=== PATIENT | female | born 1980 | race Caucasian/White ===

== ENCOUNTER 2023-06-25 08:00 | Day surgery (SDC) | payer OTHER ==
[2023-06-15 13:18] VITALS: BP 130/84
[~2023-06-25] VITALS: Ht 157.5 cm; Wt 55.5 kg
[~2023-06-25 08:00] MED LIST: IBUPROFEN200 M1 PO; KEFLEX500 MG PO; MEDROL4 M1 PO
[2023-06-25 08:11] VITALS: BP 131/82
--- NOTE | 2023-06-25 12:42 | NUR ---
06/25/23 1242 Michelle Allen 1234 PT ARRIVED TO PACU ON 6L VIA MASK, PT REACTIVE TO TACTILE STIMULI RESP EVEN AND UNLABORED. 1241 PT DENIES PAIN AND NAUSEA. O2 REMOVED. ICE PLACED ON SURGICAL SITE. PT RESTING WITH EYES CLOSED.
[2023-06-25 13:08] VITALS: BP 118/59
--- NOTE | 2023-06-25 13:10 | NUR ---
LE 1300 PATIENT BACK TO DAY SURGERY ROOM 5. VITAL SIGNS COMPLETE. PATIENT DROWSY BUT ORIENTED. BREATHING EQUAL AND UNLABORED. OXYGEN SATURATIONS ABOVE 90% ON ROOM AIR. PATIENT DENIES BEING PAINFUL OR BEING NAUSEATED. PATIENT DRINKING WATER. HEAD OF BED ELEVATED. PATIENT SURGICAL DRESSING CLEAN, DRY AND INTACT. SCD'S ON. IVF INFUSING. CALL LIGHT WITHIN REACH NO FUTHER NEEDS. NO QUESTIONS AT THIS TIME.
[2023-06-25 14:00] VITALS: BP 116/59
--- NOTE | 2023-06-25 15:46 | OR ---
[facility] [address] [place], [place] [address] Signed DATE OF OPERATION: 06/25/2023 SURGEON: Pernell Gray MD PREOPERATIVE DIAGNOSIS: Right breast cancer at 10 o'clock position (1.3 x 1.0 x 1.0 cm) POSTOPERATIVE DIAGNOSIS: Right breast cancer at 10 o'clock position (1.3 x 1.0 x 1.0 cm) PROCEDURES: 1. Injection of methylene blue. 2. Right sentinel lymph node biopsies x2. 3. Right breast needle localization lumpectomy. ESTIMATED BLOOD LOSS: Minimal. INDICATIONS: Omkar is a 43-year-old young lady, asked to see me for a new diagnosis of right breast cancer. She had a mammogram in 2019 which was unremarkable. She went back in April of 2023. There was a subtle area in the right breast at the 10 o'clock position about 5 cm back from the nipple areolar complex. She went back for compression views that same month and the subtle area persisted. An ultrasound on that same day showed the spiculated mass measuring 1.3 x 1.0 x 1.0 cm. There were no obvious lymph nodes in the axilla. She went back on May 28, 2023 and had ultrasound-guided core needle biopsies x4. A clip had been left in place. She has ductal carcinoma with some lobular components. She is ER/HI positive. HER-2/joanne is equivocal and therefore FISH studies have been pending. In the office with our medical biller coder present, we can feel a small indurated area consistent with her mammograms. No obvious lymphadenopathy. Her biopsy incision started at the 9 o'clock position and traveled up to the 10 o'clock position. I gave her a brochure on breast and breast biopsies along with breast cancer. We went through it page by page. We discussed the idea of a needle localization lumpectomy and a separate incision in the axilla for the sentinel lymph node biopsies. She understands she will need the wire placed in our Radiology Department. She also understands she will have injection of sulfur technetium colloid in our Radiology Department. After that, she would come over to operating room for the surgery. We described two separate incisions for her. She understands there is risk to the surgery including, but not limited to bleeding, infection, scarring, change in contour of the skin as well as the possible need for additional surgeries and treatments including Electronically Signed By: PERNELL GRAY MD 06/25/23 1546 PATIENT NAME: OMKAR NI OPERATIVE REPORT DATE OF : 76 REPORT #: [id number] PHYSICIAN: PERNELL GRAY MD PCP: ISAIAH ROBERTSON PA-C REPORT IS CONFIDENTIAL AND NOT TO BE RELEASED WITHOUT AUTHORIZATION [address] [address] Signed chemotherapy and radiation therapy. She understands this will be a day surgery and she will go home later. She had expressed understanding and wished to proceed. DESCRIPTION OF PROCEDURE: I met with Omkar in our preop area along with our nurse. We were able to easily identify the right breast and all agree and marked that appropriately. After this, she was taken to the operating room and placed in the supine position under general LMA anesthesia. She had been given preoperative antibiotics along with subcutaneous heparin. SCDs were utilized. She had been prepped and draped in the usual sterile fashion. We utilized a standard axillary incision along the inferior edge of the hairline and into the axilla without difficulty. We reviewed her radiographic studies. Her sentinel lymph nodes appeared to be high in the axilla rather than down lower where they are traditionally. With the help of the Liliana counter, we carefully and slowly worked our way to the top of the axilla with blunt dissection. We finally found two sentinel lymph nodes and we sent them off separately. After that, there were no other lymph nodes noted with our Liliana counter. We had injected methylene blue around her nipple areolar complex, but we did not specifically see any methylene blue in the lymph nodes. After this, local anesthetic was injected into the axilla. The wound was irrigated and suctioned out until clear. We closed the skin and dermis with interrupted 3-0 subcuticular and Monocryl sutures. The skin edges were reapproximated with a running 5-0 fast absorbing plain gut suture. After this, we looked at the wire and it was starting at the 9 o'clock position, but it was heading obliquely and superiorly up towards the 10 o'clock position about 5 cm above the nipple areolar complex. Omkar has relatively small breasts. We made a curvilinear incision so that if she would need a mastectomy in the future that could be included in the mastectomy incision. We traveled down and around the wire with the help of the cautery and digital palpation, went all the way down to the pectoralis major muscle. We went down around the wire as well as took some additional tissue medially and laterally. After this, the entire specimen was removed en bloc and marked appropriately with silk sutures. The specimen was sent off to our radiologist. The radiologist had called us back to let us know that the wire, the clip and the entire lesion was contained in the specimen. After this, we injected local anesthetic into the wound. The wound was irrigated and suctioned out until clear. We closed the skin and dermis with interrupted 3-0 subcuticular and Monocryl sutures. The skin edges were reapproximated with running 5-0 fast absorbing plain gut suture. Dry gauze and tape was then applied to both incisions. Omkar was awakened from her anesthesia, extubated in the OR, and taken to recovery room in stable condition. Pernell Gray MD Electronically Signed By: PERNELL GRAY MD 06/25/23 1546 PATIENT NAME: OMKAR NI OPERATIVE REPORT DATE OF : 76 REPORT #: [id number] PHYSICIAN: PERNELL GRAY MD PCP: ISAIAH ROBERTSON PA-C REPORT IS CONFIDENTIAL AND NOT TO BE RELEASED WITHOUT AUTHORIZATION [facility] [address] [place] [id number] Signed ALB/MODL /[id number] cc: MD Isaiah Morales PA Copies: PERNELL GRAY MD ~ Electronically Signed By: PERNELL GRAY MD 06/25/23 1546 PATIENT NAME: OMKAR NI OPERATIVE REPORT DATE OF : [birth year] REPORT #: [id number] PHYSICIAN: PERNELL GRAY MD PCP: ISAIAH ROBERTSON PA-C REPORT IS CONFIDENTIAL AND NOT TO BE RELEASED WITHOUT AUTHORIZATION
--- NOTE | 2023-06-30 15:53 | PATH ---
[facility] [address] [place], [place] [address] Signed SPECIMEN(S): A SENTINEL LYMPH NODE #1 SPECIMEN(S): B SENTINEL LYMPH NODE #2 SPECIMEN(S): C RIGHT BREAST LUMPECTOMY SPECIMEN SOURCE: A. SENTINEL LYMPH NODE #1 B. SENTINEL LYMPH NODE #2 C. RIGHT BREAST LUMPECTOMY CLINICAL HISTORY: Ductal carcinoma with lobular components. Specimen Time to Fixation- 06/25/2023 FINAL PATHOLOGIC DIAGNOSIS: A. Redfield lymph node #1, dissection: - One lymph node with micrometastasis (1/1), measuring up to 0.1 cm in greatest dimension. - Negative for extranodal extension. - A properly controlled immunohistochemical stain for AE1/AE3 performed on block A1 was positive for expression in tumor cells. B. Redfield lymph node #2, dissection: - One lymph node with isolated tumor cells (1/1). - Negative for extranodal extension. - A properly controlled immunohistochemical stain for AE1/AE3 performed on block B1 was positive for expression in tumor cells. C. Right breast, lumpectomy: - Multifocal invasive carcinoma with mixed ductal and lobular features; see synoptic report. INVASIVE CARCINOMA OF THE BREAST: Resection Applies To: A, B, C SPECIMEN Procedure: Excision (less than total mastectomy) Specimen Laterality: Right TUMOR Tumor Site: Not specified Histologic Type: Invasive carcinoma with mixed ductal and lobular features Glandular (Acinar) / Tubular Differentiation: Score 3 Nuclear Pleomorphism: Score 2 Mitotic Rate: Score 1 Overall Grade: Grade 2 (scores of 6 or 7) PATIENT NAME: OMKAR NI PATHOLOGY DATE OF : 76 REPORT #: [id number] PHYSICIAN: AFUA DAVILA PCP: ISAIAH ROBERTSON PA-C REPORT IS CONFIDENTIAL AND NOT TO BE RELEASED WITHOUT AUTHORIZATION [facility] [address] [place], [place] [address] Signed Tumor Size: Greatest dimension of largest invasive focus (Millimeters) - 13 mm Tumor Focality: Multiple foci of invasive carcinoma Number of Foci: Cannot be determined Ductal Carcinoma In Situ (DCIS): Present Size (Extent) of DCIS: Estimated size (extent) of DCIS is at least (Millimeters) - 3 mm Number of Blocks with DCIS: 3 Number of Blocks Examined: 21 Architectural Patterns: Cribriform, Solid Nuclear Grade: Grade II (intermediate) Necrosis: Not identified Lymphovascular Invasion: Present Dermal Lymphovascular Invasion: No skin present Treatment Effect in the Breast: No known presurgical therapy MARGINS Margin Status for Invasive Carcinoma: Invasive carcinoma present at margin Margin(s) Involved by Invasive Carcinoma: Anterior - multifocal Distance from Invasive Carcinoma to Anterior Margin: 0 mm Distance from Invasive Carcinoma to Posterior Margin: Greater than - 2 mm Distance from Invasive Carcinoma to Superior Margin: Greater than - 2 mm Distance from Invasive Carcinoma to Inferior Margin: Greater than - 2 mm Distance from Invasive Carcinoma to Medial Margin: Less than - 1 mm Distance from Invasive Carcinoma to Lateral Margin: Less than - 1 mm Margin Status for DCIS: All margins negative for DCIS Distance from DCIS to Closest Margin: 1 mm Closest Margin(s) to DCIS: Anterior Distance from DCIS to Anterior Margin: 1 mm Distance from DCIS to Posterior Margin: Greater than - 2 mm Distance from DCIS to Superior Margin: Greater than - 2 mm Distance from DCIS to Inferior Margin: Greater than - 2 mm Distance from DCIS to Medial Margin: Greater than - 2 mm Distance from DCIS to Lateral Margin: Greater than - 2 mm REGIONAL LYMPH NODES Regional Lymph Node Status: Tumor present in regional lymph node(s) Number of Lymph Nodes with Macrometastases - 0 Number of Lymph Nodes with Micrometastases - 1 Number of Lymph Nodes with Isolated Tumor Cells - 1 Size of Largest Arcelia Metastatic Deposit - 1 mm Extranodal Extension - Not identified Total Number of Lymph Nodes Examined (sentinel and non-sentinel): 2 PATIENT NAME: OMKAR NI PATHOLOGY DATE OF : 76 REPORT #: [id number] PHYSICIAN: AFUA DAVILA PCP: ISAIAH ROBERTSON PA-C REPORT IS CONFIDENTIAL AND NOT TO BE RELEASED WITHOUT AUTHORIZATION [facility] [address] [place], [place] [address] Signed Number of Redfield Nodes Examined: 2 PATHOLOGIC STAGE CLASSIFICATION (pTNM, AJCC 8th Edition) Reporting of pT, pN, and (when applicable) pM categories is based on information available to the pathologist at the time the report is issued. As per the AJCC (Chapter 1, 8th Ed.) it is the managing physician's responsibility to establish the final pathologic stage based upon all pertinent information, including but potentially not limited to this pathology report. TNM Descriptors: m (multiple foci of invasive carcinoma) pT Category: pT1c Regional Lymph Nodes Modifier: (sn): Redfield node(s) evaluated. pN Category: pN1mi ADDITIONAL FINDINGS Additional Findings: Biopsy site changes Breast Biomarker Testing Performed on Previous Biopsy: Estrogen Receptor (ER) Status: Positive (greater than 10% of cells demonstrate nuclear positivity) Percentage of Cells with Nuclear Positivity: 91-100% Progesterone Receptor (PgR) Status: Positive Percentage of Cells with Nuclear Positivity: 91-100% HER2 (by in situ hybridization): Negative (not amplified) Testing Performed on COMMENT: Grossly, no masses were identified in Specimen C, however, microscopically, multiple foci of tumor were seen, measuring up to 13 mm in greatest dimension. As part of [facility] Quality Improvement Program, this case was reviewed by another member of our pathology staff. A diagnostic alert was initiated by Dr. Murillo on 06/30/2023. DDF MICROSCOPIC EXAMINATION: Histologic sections of all submitted blocks are examined by light microscopy. These findings, together with the gross examination, support the pathologic diagnosis. DDF GROSS DESCRIPTION: A. The specimen, labeled and designated "Tony Ranulfo" and designated on the requisition "sentinel lymph node #1," is received in formalin and consists of one pike possible lymph node (1.2 x 0.8 x 0.7 cm). PATIENT NAME: OMKAR NI PATHOLOGY DATE OF : 76 REPORT #: [id number] PHYSICIAN: AFUA DAVILA PCP: ISAIAH ROBERTSON PA-C REPORT IS CONFIDENTIAL AND NOT TO BE RELEASED WITHOUT AUTHORIZATION [address] [address] Signed The specimen is serially sectioned to reveal a pike-pink soft cut surface and is submitted entirely in cassette A1. B. The specimen, labeled and designated "Tony B" and designated on the requisition "sentinel lymph node #2," is received in salineand consists of a piece of pike-pink soft tissue/possible lymph node (1.4 x 0.8 x 0.7 cm). A piece of the specimen is placed in RPMI and held for lymphoma triage (see HC1 resolution). The remainder of the specimen is radially sectioned and submitted entirely in cassette B1. C. The specimen, labeled and designated "Tony C" and designated on the requisition "right breast lumpectomy," is received in formalin and consists of an oriented portion of fibroadipose tissue (27 grams, 6.0 cm superior to inferior, 3.8 cm medial to lateral, 3.0 cm anterior to posterior) with a short stitch marking superior, long stitch marking lateral, and a double stitch marking medial per the requisition. The specimen is inked as follows: Blue= Superior Green = Inferior Yellow = Anterior Black = Posterior Red = Medial Ogle = Lateral The specimen is serially sectioned from superior to inferior into 11 slices to reveal a white-pike fibrous cut surface. A circular clip and the tip of the localization wire is located in slice five. The entire cut surface is white-pike dense and fibrocystic. A discrete lesion cannot be grossly visualized. The specimen is submitted entirely. Cassette Summary: (C1) slice one, superior margin, perpendicularly sectioned (C2-C3) slice two (C4-C5) slice three (C6-C7) slice four (C8-C9) slice five, location of clip (C10-C11) slice six (C12-C13) slice seven (C14-C15) slice eight (C16-C17) slice nine (C18-C19) slice 10 (C20-C21) slice 11, inferior margin, perpendicularly sectioned Cold ischemic time: Cannot be calculated PATIENT NAME: OMKAR NI PATHOLOGY DATE OF : 76 REPORT #: [id number] PHYSICIAN: AFUA DAVILA PCP: ISAIAH ROBERTSON PA-C REPORT IS CONFIDENTIAL AND NOT TO BE RELEASED WITHOUT AUTHORIZATION [facility] [address] [place], [place] [address] Signed The tissue was fixed in formalin for at least 12 and less than 32 hours AC (under the direct supervision of a pathologist) The Gross Description was prepared using a voice recognition system. The report was reviewed for accuracy; however, sound-alike word errors, addition and/or deletions may occur. If there is any question about this report, please contact Client Services. ADDITIONAL NOTES: Immunohistochemical and/or in situ hybridization studies if performed in this case included appropriate positive controls that reacted as expected. This test was developed and its performance characteristics determined by [facility]. It has not been cleared or approved by the U.S. Food and Drug Administration. The FDA has determined that such clearance or approval is not necessary. This test is used for clinical purposes. It should not be regarded as investigational or for research. [facility] is certified under the Clinical Laboratory Improvement Amendments of 1988 (CLIA) as qualified to perform high complexity clinical laboratory testing. PERFORMING LABORATORY: Technical component was performed by [facility], [address] [place] [id number] (CLIA# [id number]). Professional interpretation was performed by [email or web address], [address] [place] [id number] (IA#: [id number]). Diagnostician: Vida Lira MD Pathologist Diagnostician: Fabrizio Murillo DO Pathologist Electronically Signed 06/30/2023 Copies: ~ PATIENT NAME: OMKAR NI PATHOLOGY DATE OF : [birth year] REPORT #: [id number] PHYSICIAN: AFUA DAVILA PCP: ISAIAH ROBERTSON PA-C REPORT IS CONFIDENTIAL AND NOT TO BE RELEASED WITHOUT AUTHORIZATION
== END 2023-06-25 14:15 | disposition home or self-care (01) ==
LOC: DS 08:00 → OPS 08:00 → EDSTATUS 09:00 → OPS 09:00 → US 09:00 → NUC 10:00 → OPS 14:15
PROVIDERS: ATTEND Colon & Rectal Surgery
PROC: 0HBT0ZZ Excision of Right Breast, Open Approach (ICD-10-PCS; principal; 2023-06-25 10:30)
PROC: 07B50ZX Excision of Right Axillary Lymphatic, Open Approach, Diagnostic (ICD-10-PCS; 2023-06-25 10:30)
DX: C50.411 Malignant neoplasm of upper-outer quadrant of right female breast (principal); C77.3 Secondary and unspecified malignant neoplasm of axilla and upper limb lymph nodes
CPT/HCPCS: 00400; 76098; 76942; 77065; 78195; A9541; J0131; J0690; J1100; J1644; J1885; J2250; J2405; J2704; J3490; J7121; Q9968

== ENCOUNTER 2024-06-21 05:45 | Day surgery (SDC) | payer OTHER ==
[2024-06-16 10:22] VITALS: BP 132/86
[~2024-06-21] VITALS: Ht 157.5 cm; Wt 60.0 kg
--- NOTE | ~2024-06-21 | OR ---
[facility] [address] [place] [id number] Draft DATE OF OPERATION: 06/21/2024 SURGEON: Maryjane Spangler DO PREOPERATIVE DIAGNOSES: ER positive breast cancer. POSTOPERATIVE DIAGNOSES: ER positive breast cancer. PROCEDURES PERFORMED: 1. Total laparoscopic hysterectomy. 2. Bilateral salpingo oophorectomy. 3. Cystoscopy. FLIGHT MECHANIC: Aniyah Crowley MD. ANESTHESIA: General. ESTIMATED BLOOD LOSS: 15 mL. SPECIMENS: Uterus with cervix, bilateral tubes and ovaries. DRAINS: Hernadez to gravity. FINDINGS: Normal external genitalia. Normal clitoris urethral meatus, bilateral Kittitas's, Bartholin's glands. Normal vagina and cervix. On laparoscopy, normal uterus, tubes, and ovaries. Small filmy adhesions of the cul-de-sac. Normal bladder with bilateral ureteral jets on cystoscopy. COMPLICATIONS: None. INDICATIONS: PATIENT NAME: OMKAR JIMENEZ OPERATIVE REPORT DATE OF : 76 REPORT #: [id number] PHYSICIAN: MARYJANE SPANGLER (JOSESITO) PCP: ISAIAH ROBERTSON PA-C REPORT IS CONFIDENTIAL AND NOT TO BE RELEASED WITHOUT AUTHORIZATION [facility] [address] [place] [id number] Draft Ms. Jimenez is a very pleasant 44-year-old female, who was diagnosed with ER positive breast cancer and status post treatment. She is on estrogen suppression and after conversation with oncologist requested surgical estrogen suppression. She was consented for total laparoscopic hysterectomy, bilateral salpingectomy, and cystoscopy. Risks, benefits, and alternatives were discussed in detail with the patient. The patient understands and wished to proceed with the procedure. PROCEDURE IN DETAIL: The patient was taken the OR. A time-out was performed to confirm correct patient, correct procedure. General anesthesia was adequately established. The patient was prepped and draped in dorsal lithotomy position with her feet in Yellofin stirrups. ICPs were on and running. The patient received Ancef 2 g preoperatively as well as heparin 5000 units preoperatively. A Hernadez catheter was inserted. A weighted speculum was placed in the vagina and the anterior lip of the cervix was grasped with an Allis clamp. The cervix was gently dilated using Hegar dilators. A Cvgram.meare uterine manipulator was placed and suspected perforation was noted. Surgeon's gloves were changed and attention was turned to the abdomen. The skin just inferior to the umbilicus was infiltrated with 0.25% Marcaine with epinephrine and a 3-4 cm curvilinear incision was made using a surgical scalpel. The fascia was grasped, elevated, and entered sharply. Fascial incision was extended using Metzenbaum scissors and stay sutures of 0 Vicryl placed in the inferior and superior edges of the fascial incision. The peritoneum was entered and a Costa operative port was placed without difficulty. Pneumoperitoneum was established and survey of the abdomen and pelvis were performed. A 5 mm assist port was placed in the left lower quadrant under direct visualization without complication. An 8 mm expanding port was placed in the right lower quadrant under direct visualization without complication. Attention was then turned to bilateral salpingo-oophorectomy. The right ovary was elevated and the infundibulopelvic ligament identified. The ureter was noted to be medial, well away from the IP. The peritoneum just lateral to the IP was nicked and opened. The IP was isolated and fulgurated and divided with excellent hemostasis. An Endoloop stitch was then placed on the cut end of the IP to secure this further. Attention was turned to the left, where the process was repeated without difficulty with identification of the infundibulopelvic ligament. The ureter fulguration division of the IP and ligation with endo-stitch device. The right round ligament was then fulgurated and divided and the leaves of the broad ligament were divided. The anterior from the midportion of the round to the anterior edge of the vaginal cup. The posterior leaf of the broad ligament was divided from the midportion of the round to the uterosacral posteriorly. The uterine vessels were identified, fulgurated and divided on the right without difficulty. The process was repeated on the left without difficulty. Colpotomy was then performed using Sonicision device in the uterus, cervix, tubes and ovaries were removed through the vagina without difficulty and sent to Pathology for further evaluation. Pneumoperitoneum was reestablished by placing a wet lap sponge inside of a glove and placing this inside the vagina. The colpotomy PATIENT NAME: OMKAR JIMENEZ OPERATIVE REPORT DATE OF : 76 REPORT #: [id number] PHYSICIAN: MARYJANE SPANGLER) DO PCP: ISAIAH ROBERTSON PA-C REPORT IS CONFIDENTIAL AND NOT TO BE RELEASED WITHOUT AUTHORIZATION [facility] [address] [place] [id number] Draft was then evaluated and a small amount of oozing was noted and this was made hemostatic with bipolar cautery. Colpotomy was then repaired using V-Loc suture with an Endostitch device with careful attention to incorporate the uterosacral ligaments bilaterally as well as to incorporate the vaginal epithelium with each bite. Excellent hemostasis and apical support were appreciated. The pelvis was irrigated and found to be hemostatic. Small amount of filmy adhesions was noted in the cul-de-sac and these were brought down with bipolar cautery without difficulty. Pneumoperitoneum was reduced. Trocars were removed and infraumbilical fascia was reapproximated using 0 Vicryl in a running nonlocked manner. Skin incisions were repaired using 3-0 Vicryl Rapide in a subcuticular stitch with excellent hemostasis. Attention was then turned to cysto. The Hernadez catheter was removed and the wet lap inside the glove was removed from the vagina. A 7 degree cystoscope was then placed in the urethral meatus and advanced under direct visualization of the bladder. Normal bladder with bilateral ureteral jets was appreciated. The bladder was drained. Hernadez catheter was inserted and the patient was taken to PACU in good and stable condition. Sponge, needle, and instrument counts were correct x2 at the end of the procedure. Dr. Crowley was present and participated in all portions of procedure. DO YOSSI Way/STAR /[id number] Copies: ~ PATIENT NAME: OMKAR JIMENEZY OPERATIVE REPORT DATE OF : 76 REPORT #: [id number] PHYSICIAN: MARYJANE SPANGLER (JOSESITO) PCP: ISAIAH ROBERTSON PA-C REPORT IS CONFIDENTIAL AND NOT TO BE RELEASED WITHOUT AUTHORIZATION
[~2024-06-21 05:45] MED LIST changes: +AROMASIN25 MG PO; +HYDROCODON-ACE1 EAC8 PO; +ICAPS AREDS2 C1 EACH; +LACTATED RINGER'S 1,000 ML IV SCH; +MAG DELAY64 M1 PO; +VITAMIN E OIL-V52 M1 TOP; +ZOLADEX3.6 MG SUB-Q
[2024-06-21 06:01] VITALS: BP 150/85
[2024-06-21] MEDS ORDERED: CALCIUM500 MG PO (06:06)
[2024-06-21] MEDS ORDERED: VITAMIN D210 MCG PO (06:06)
[2024-06-21] MEDS ORDERED: VITAMIN C500 M1 PO (06:07)
[2024-06-21] MEDS ORDERED: HEParin SOD (PORCINE) 5,000 UNIT/0.5 ML SYR SUB-Q SCH (07:00)
[2024-06-21] MEDS ORDERED: CEFAZOLIN SODIUM 2 GM/20 ML SYR IV SCH (07:00)
[2024-06-21] MEDS ORDERED: LIDOCAINE HCL 1% 5 ML SDV INJ ONE (07:00)
[2024-06-21] MEDS ORDERED: IBLOOD GLUCOSE TEST STRIP 1 EA TEST VI PRN ×2 (07:00→07:45)
[2024-06-21] MEDS ORDERED: KETAMINE in NS 50 MG/5 ML SYR ONE (07:09)
[2024-06-21] MEDS ORDERED: fentaNYL citrate 100 MCG/2 ML VIAL ONE (07:09)
[2024-06-21] MEDS ORDERED: HYDROmorphone HCL 2 MG/ML VIAL ONE (07:09)
[2024-06-21] MEDS ORDERED: MAGNESIUM SULFATE 1 GM/2 ML VIAL ONE (07:10)
[2024-06-21] MEDS ORDERED: LIDOCAINE HCL 2% 5 ML SDV ONE (07:10)
[2024-06-21] MEDS ORDERED: dexmedeTOMIDine HCl 200 MCG/2 ML VIAL ONE (07:10)
[2024-06-21] MEDS ORDERED: ondansetron HCL 4 MG/2 ML VIAL ONE (07:10)
[2024-06-21] MEDS ORDERED: DEXAMETHASONE SOD PHOS 4 MG/ML VIAL ONE (07:10)
[2024-06-21] MEDS ORDERED: ACETAMINOPHEN 1,000 MG/100 ML VIAL ONE (07:10)
[2024-06-21] MEDS ORDERED: propofoL 200 MG/20 ML VIAL ONE (07:10)
[2024-06-21] MEDS ORDERED: SODIUM CHLORIDE 0.9% 40 ML IV ONE (07:10)
[2024-06-21] MEDS ORDERED: ROCURONIUM BROMIDE 50 MG/5 ML SYR ONE (07:10)
[2024-06-21] MEDS ORDERED: ondansetron HCL 4 MG/2 ML VIAL IV PRN (07:45)
[2024-06-21] MEDS ORDERED: KETOROLAC TROMETHAMINE 30 MG/ML VIAL IV PRN (07:45)
[2024-06-21] MEDS ORDERED: fentaNYL citrate 50 MCG/ML SDV IV PRN (07:45)
[2024-06-21] MEDS ORDERED: NALOXONE HCL 0.4 MG SYR IV PRN ×2 (07:45→09:15)
[2024-06-21] MEDS ORDERED: droPERidol 5 MG/2 ML VIAL IV PRN (07:45)
[2024-06-21] MEDS ORDERED: FLUORESCEIN SODIUM 500 MG/5 ML ML ONE (08:30)
[2024-06-21] MEDS ORDERED: SUGAMMADEX SODIUM 200 MG/2 ML ML ONE (08:34)
[2024-06-21] MEDS ORDERED: SIMETHICONE 125 MG TABLET CHEWABLE PO PRN (09:15)
[2024-06-21] MEDS ORDERED: ondansetron HCL 4 MG TAB PO PRN (09:15)
[2024-06-21] MEDS ORDERED: METOCLOPRAMIDE HCL 10 MG/2 ML SDV IV PRN (09:15)
[2024-06-21] MEDS ORDERED: MORPHINE SULFATE 10 MG/ML VIAL IV PRN (09:15)
[2024-06-21] MEDS ORDERED: HYDROCODONE/ACETA 5/325 TAB PO PRN (09:15)
[2024-06-21] MEDS ORDERED: FAMOTIDINE 20 MG/ 2 ML VIAL IV PRN (09:15)
[2024-06-21 09:54] VITALS: BP 122/75
--- NOTE | 2024-06-21 10:05 | NUR ---
06/21/24 1005 Anabel Calderon 0854 PT ARRIVED IN PACU SLEEPY. LEWIS WITH NEON YELLOW URINE PRESENT. 15 C/O ABD PAIN. UNABLE TO RATE. TORADOL 30MG GIVEN IV. 927 NO CHANGE IN ABD CRAMPING. FENTANYL 25MCG GIVEN IV. 35 ABD PAIN DECREASING PER PT. FENTANYL 25MCG GIVEN IV. 0945 RESTING. REU. 0950 LEWIS REMOVED. TIP INTACT. 0954 TO DS. REPORT GIVEN TO RN.
--- NOTE | 2024-06-21 10:10 | NUR ---
0954-PT BACK TO ROOM FROM PACU ON . RECEIVED REPORT FROM JAQUI MAYERS. PT IS DROWSY. RESP EVEN AND UNLABORED. RATES PAIN 2/10. DENIES NASUEA AT THIS TIME. PROVIDED PT WITH WATER. DENIES SNACK AT THIS TIME. LIGHTS TURNED OFF. NO OTHER NEEDS AT THIS TIME. CALL LIGHT WITHIN REACH.
[2024-06-21 10:46] VITALS: BP 111/66
--- NOTE | 2024-06-21 10:54 | NUR ---
PT SIPPING WATER AND EATING CRACKERS WITH NO CONCERNS. PT REPORTS "ROOM IS SPINNING A LITTLE." PT DENIES NAUSEA AND REPORTS PAIN 3/10, PLAN OF CARE DISCUSSED. PAIN MEDICATION GIVEN PER EMAR. VSS.
[2024-06-21 12:04] VITALS: BP 122/63
--- NOTE | 2024-06-21 12:19 | NUR ---
1204-PT LAYING IN BED. PT IS DROWSY. RESP EVEN AND UNLABORED. 1208-PT UPTO RESTROOM. GAIT STEADY AND TOLERATED WELL. DENIES NAUSEA OR BEING DIZZY. PT VOIDS 200ML OF YELLOW URINE. 1211-PT BACK TO BED. STATES FEELS A LITTLE LIGHTHEADED. WARM BLANKET PROVIDED. NO OTHER NEEDS AT THIS TIME. CALL LIGHT WITHIN REACH.
[2024-06-21 13:04] VITALS: BP 121/74
--- NOTE | 2024-06-21 13:36 | NUR ---
LE 1304-PT LAYING IN BED AWAKE. RESP EVEN AND UNLABORED. RATES PAIN /. PT IS READY TO GO HOME. PT WILL GET DRESSED. CALL LIGHT WITH IN REACH.
--- NOTE | 2024-07-05 14:20 | PATH ---
[facility] [address], [place] [address] Signed SPECIMEN(S): A UTERUS, CERVIX, BILATERAL TUBES, OVARIES SPECIMEN SOURCE: A. UTERUS, CERVIX, BILATERAL TUBES, OVARIES CLINICAL HISTORY: History breast cancer FINAL PATHOLOGIC DIAGNOSIS: Uterus, cervix, bilateral tubes and ovaries: - Benign proliferative endometrium, negative for hyperplasia or atypia. - Benign endo and ectocervix. - Benign bilateral ovaries with bilateral cystic follicles. - Incidental endosalpingiosis involving the left ovary. - Benign bilateral oviducts. COMMENT: As part of [facility] Quality Improvement Program, slide A10 from this case was reviewed by another member of our pathology staff. JVR:JAQUELIN:marcello MICROSCOPIC EXAMINATION: Histologic sections of all submitted blocks are examined by light microscopy. These findings, together with the gross examination, support the pathologic diagnosis. GROSS DESCRIPTION: The specimen, labeled and designated "Shelby Jimenez, uterus, cervix, bilateral tubes and ovaries," is received in formalin and consists of uterus with attached cervix attached bilateral tubes and ovaries. Uterus and cervix measures 7.0 x 5.2 x 3.3 cm and weighs 68 g. The anterior uterine serosa shows an area of defect measuring 1.3 x 0.5 cm, second defect at the fundus measuring 0.6 x 0.5 cm, cystic area on the posterior uterine serosa measuring 1.5 x 0.8 x 0.6 cm filled with clear fluid, remainder of the surface is pink-pike smooth. The cervix measures 3.0 x 3.0 cm, the ectocervix pink-pike smooth with multiple Nabothian cysts, the external os is slit like and patent measuring 1.2 cm in greatest dimension. Specimen is opened to reveal a triangular-shaped endometrium measuring 3.0 x 2.0 cm and endometrium slightly thickened velvety measuring in thickness from 0.2 PATIENT NAME: OMKAR JIMENEZ PATHOLOGY DATE OF : 76 REPORT #: [id number] PHYSICIAN: AFUA PATHOLOGY PCP: ISAIAH ROBERTSON PA-C REPORT IS CONFIDENTIAL AND NOT TO BE RELEASED WITHOUT AUTHORIZATION [facility] [address], [place] [address] Signed to 0.4 cm. The myometrial thickness is 1.5 cm and is sectioned single intramural leiomyoma measuring 0.4 cm in greatest dimension. The left fallopian tube measures 4.5 cm in length by 0.5 cm in greatest diameter with attached fimbriated end and multiple peritubular cysts range size from 0.1 to 0.3 cm. The attached ovary measures 3.0 x 2.9 x 1.5 cm and weighs 5 g. Outer surfaces pink-pike convoluted and is section multiple cystic cavities filled with brown fluid ranging size from 0.2 to 1.0 cm all with a smooth inner lining. The right fallopian tube measures 4.6 cm in length by 0.6 cm in greatest diameter with attached fimbriated end and multiple peritubular cyst ranging size from 0.1 to 0.3 cm. The attached ovary measures 3.0 x 2.5 x 1.9 cm and weighs 7 g. The Outer surface pink-pike smooth and is sectioned to reveal multiple cystic cavities filled with pike fluid ranging size from 0.4 to 1.4 cm all with a smooth inner lining. Multimedia Engineer sections are submitted. A1 represent section of cervix A2 training representative sections of endometrium myometrium A3 trisected left fimbriated end A4A6 left fallopian tube serially section entirely submitted from distal to proximal A7A11 left ovary serially section entirely submitted a 12 trisected right fimbriated end A13A15 right fallopian tube serially section submitted from distal to proximal A16A22 right ovary serially section entirely submitted JEREMÍAS (under the direct supervision of a pathologist) The Gross Description was prepared using a voice recognition system. The report was reviewed for accuracy; however, sound-alike word errors, addition and/or deletions may occur. If there is any question about this report, please contact Client Services. PERFORMING LABORATORY: Technical component was performed by [facility], [address] [place] [id number] (CLIA# [id number]). Professional interpretation was performed by [facility] [employer] Pathology - [facility], [address] [place] [id number] (CLIA#: [id number]). Diagnostician: Jay Jay Gutierrez MD Pathologist Electronically Signed 07/05/2024 Copies: PATIENT NAME: OMKAR JIMENEZ PATHOLOGY DATE OF : 76 REPORT #: [id number] PHYSICIAN: [facility] PATHOLOGY PCP: ISAIAH ROBERTSON PA-C REPORT IS CONFIDENTIAL AND NOT TO BE RELEASED WITHOUT AUTHORIZATION [address] [address] Signed ~ PATIENT NAME: OMKAR JIMENEZ PATHOLOGY DATE OF : 76 REPORT #: [id number] PHYSICIAN: AFUA DAVILA PCP: ISAIAH ROBERTSON PA-C REPORT IS CONFIDENTIAL AND NOT TO BE RELEASED WITHOUT AUTHORIZATION
== END 2024-06-21 13:22 | disposition home or self-care (01) ==
LOC: DS 05:45
PROVIDERS: ATTEND Obstetrics & Gynecology
PROC: 0UT94ZZ Resection of Uterus, Percutaneous Endoscopic Approach (ICD-10-PCS; principal; 2024-06-21 07:30)
PROC: 0UB74ZZ Excision of Bilateral Fallopian Tubes, Percutaneous Endoscopic Approach (ICD-10-PCS; 2024-06-21 07:30)
DX: N94.89 Other specified conditions associated with female genital organs and menstrual cycle (principal); C50.911 Malignant neoplasm of unspecified site of right female breast; Z17.0 Estrogen receptor positive status [ER+]
CPT/HCPCS: 00840; 88307; J0131; J0690; J1100; J1170; J1644; J1885; J2001; J2405; J2704; J3010; J3475; J3490; J7121

== ENCOUNTER 2025-03-24 08:00 | Day surgery (SDC) | payer OTHER ==
[2025-03-20 13:29] VITALS: BP 116/79
[~2025-03-24] VITALS: Ht 157.5 cm; Wt 60.4 kg
[~2025-03-24 08:00] MED LIST changes: +CALCIUM500 MG PO; +COQ-10100 MG PO; +FISH OIL 1,0001 EACH PO; +GABAPENTIN600 MG PO; +IBLOOD GLUCOSE TEST STRIP 1 EA TEST VI PRN; +LIDOCAINE HCL 1% 5 ML SDV INJ ONE; +LIPITOR20 MG PO; +TYLENOL EXTRA500 MG PO; +VITAMIN C500 M1 PO; +VITAMIN D210 MCG PO; +VITAMIN D3125 MC1 PO
[2025-03-24 08:12] VITALS: BP 123/73
[2025-03-24] MEDS ORDERED: GABAPENTIN300 MG PO (08:26)
[2025-03-24] MEDS ORDERED: propofoL 200 MG/20 ML VIAL ONE (09:13)
[2025-03-24] MEDS ORDERED: LIDOCAINE HCL 2% 5 ML SDV ONE (09:13)
[2025-03-24] MEDS ORDERED: SEVOFLURANE 250 ML BTL ONE (09:25)
--- NOTE | 2025-03-24 10:53 | NUR ---
03/24/25 1053 Brisa Bah 1038-PT ARRIVES TO PACU VIA STRETCHER, RESTING ON LT SIDE, PT A+OX4, DENIES PAIN OR NAUSEA, VSS ON 2L VIA NC. PT ENCOURAGED TO PASS GAS. 1045- AT BEDSIDE TO DISCUSS PROCEEDURE RESULTS AND PLAN OF CARE W/ PT, ALL QUESTIONS ANSWERED. PT TITRATED TO RA, VS REMAIN STABLE.
[2025-03-24 11:34] VITALS: BP 119/79
== END 2025-03-24 11:15 | disposition home or self-care (01) ==
LOC: DS 08:00
PROVIDERS: ATTEND Surgery
PROC: 0DJD8ZZ Inspection of Lower Intestinal Tract, Via Natural or Artificial Opening Endoscopic (ICD-10-PCS; principal; 2025-03-24 08:55)
DX: Z12.11 Encounter for screening for malignant neoplasm of colon (principal); K64.8 Other hemorrhoids; F17.210 Nicotine dependence, cigarettes, uncomplicated; Z79.899 Other long term (current) drug therapy
CPT/HCPCS: 00812; J2003; J2704; J7121